=== PATIENT | male | born 1970 | race Caucasian/White ===

== ENCOUNTER 2022-03-18 17:50 | Emergency (ER) | payer OTHER, SELFPAY ==
--- NOTE | ~2022-03-18 | CT_ITS ---
EXAMINATION: CT abdomen pelvis wo con DATE: 03/18/2022 20:15 INDICATION: left lower abdominal pain TECHNIQUE: Computed tomography (CT) of the abdomen and pelvis was performed without intravenous contr ast. Automated exposure control and iterative reconstruction technique were employed. The dose-length product was 296.73 mGy-cm. COMPARISON: None. FINDINGS: Lower thorax: Calcified right hilar node. Right lower lobe granuloma. Liver: Normal. Biliary/Gallbladder: Gallbladder is normal. No bile duct dilation. Pancreas: No mass or duct dilation. Spleen: Normal. Adrenals:No mass. Kidneys: Moderate right perinephric stranding and hydronephrosis. GI tract: No small or large bowel dilation. Normal appendix. Mesentery/Peritoneum: No ascites, mass, or free air. Retroperitoneum: No mass. Atherosclerotic abdominal aortic and/or arterial calcifications. Pelvis: Pelvic organs are within normal limits. 3 x 5 mm distal left ureteral stone Soft Tissues: Uncomplicated fat-containing umbilical and left inguinal hernias Bones: No acute osseous finding. IMPRESSION: 3 x 5 mm distal left ureteral stone causing moderate obstructive uropathy Reviewed, dictated and finalized at location K.
--- NOTE | ~2022-03-18 | XR_ITS ---
EXAM: XR abdomen/kub 1V DATE: 03/18/2022 20:15 HISTORY: left lower abdominal pain x 1 day . COMPARISON: CT abdomen and pelvis, same date. FINDINGS: Clear lung bases. Normal bowel gas pattern. No organomegaly. No abnormal abdominal calcifi cation. Regional bones and soft tissues normal for age. IMPRESSION: Normal abdomen radiograph findings. Known distal left ureteral stone is not radiographica lly visualized. Reviewed, dictated and finalized at location K. IMPRESSION: Normal abdomen radiograph findings. Known distal left ureteral ston e is not radiographically visualized.
[2022-03-18 17:55] VITALS: BP 138/82; PULSE 69; RESP 16; TEMP 36.8; O2SAT 100
[2022-03-18 19:37] LABS: Basophils Absolute Auto 0.1 K/mm3 (0.0-0.1); Basophils Percent Auto 0.5 % (0.2-1.2); Eosinophils Absolute Auto 0.2 K/mm3 (0-0.3); Eosinophils Percent Auto 1.3 % (0-4.4); Hematocrit 44.2 % (42.0-52.0); Immature Granulocyte Absolute 0.04 K/mm3 (0.00-0.031); Immature Granulocyte Percent A 0.3 % (0-0.5); Lymphocytes Percent Auto 14.7 % (18.3-44.2); Mean Corpuscular HGB Conc 33.9 g/dl (32-36); Mean Corpuscular Hemoglobin 31.6 pg (26-34); Mean Corpuscular Volume 93.2 fl (80-100); Mean Platelet Volume 9.7 fl (7.4-10.4); Monocytes Absolute Auto 0.7 K/mm3 (0.1-0.6); Monocytes Percent Auto 6.1 % (2.6-8.5); Neutrophils Absolute Auto 8.9 K/mm3 (1.3-6.7); Neutrophils Percent Auto 77.1 % (45.5-73.1); Platelet Count Result 181 k/mm3 (150-375); Red Blood Count 4.74 M/mm3 (4.6-6.20); Red Cell Distribution Width 13.2 % (11.5-14.5); White Blood Count 11.5 K/mm3 (4.5-10.0)
[2022-03-18 19:47] LABS: Alanine Aminotransferase 17 U/L (6-50); Albumin Level 4.5 g/dL (3.5-5.1); Alkaline Phosphatase 104 U/L (38-126); Anion Gap 8 mmol/L (8-16); Aspartate Amino Transferase 26 U/L (17-59); Bilirubin,Total 0.3 mg/dL (0.2-1.3); Blood Urea Nitrogen 16 mg/dL (9-20); Calcium 8.7 mg/dL (8.4-10.2); Carbon Dioxide 26 mmol/L (22-30); Chloride 105 mmol/L (98-107); Estimated CRCL calculation 57 ml/min; Estimated Glomerular Filt Rate > 60; Glucose 102 mg/dL (65-110); Lipase 57 U/L (23-300); Potassium 4.2 mmol/L (3.4-5.0); Sodium 139 mmol/L (137-145)
[2022-03-18] MEDS: SODIUM CHLORIDE 0.9% IV 1,000 ML 999 ML IV CONT (20:18)
[2022-03-18] MEDS: KETOROLAC 30 MG/ML VIAL (*BKC) IV PUSH (21:07)
--- NOTE | 2022-03-19 01:35 | ED.ABDPAIN ---
HPI - Abdominal Pain General Chief Complaint: Abdominal Pain Stated Complaint: abd pain Time Seen by Provider: 03/18/22 19:05 History of Present Illness HPI narrative: 51-year-old male presents today with complaints of left lower abdominal pain that started about 24 hours ago. Patient states the pain started in his left flank and has now traveled to his left lower abdominal arm. Patient states he does have a history of kidney stones. Patient states last kidney stone was years ago. Patient states he was able to pass it on his own. Patient denies any urinary frequency, dysuria, or hematuria. Related Data Allergies Allergy/AdvReac Type Severity Reaction Status Date / Time No Known Allergies Allergy Verified 03/18/22 19:36 Review of Systems Review of Systems: CONSTITUTIONAL: Denies fever, chills, or sweats. EYES: Denies visual changes, redness, or discharge. ENT: Denies rhinorrhea, congestion, sore throat, or otalgia. CARDIOVASCULAR: Denies chest pain, palpitations, or edema. RESPIRATORY: Denies cough or dyspnea. GASTROINTESTINAL: Left lower abdominal pain. Denies nausea, vomiting, or diarrhea. GENITOURINARY: Denies dysuria or hematuria. SKIN: Denies rash or itching. MUSCULOSKELETAL: Denies back pain, joint pain, or myalgia. NEUROLOGIC: Denies headache, numbness, dizziness, or weakness. PSYCHIATRIC: Denies anxiety or depression. [facility] Social History Social History Smoking status: Current every day smoker Alcohol intake: never Course Course Emergency Course: Patient refused fentanyl and Zofran. IV fluids were given. CT showed 3 x 5 mm stone distal causing moderate distal uropathy. Discussed findings with patient. Agreed to Toradol. And reevaluation. Patient left prior to reevaluation. Vital Signs Vital signs: Vital Signs Temperature 36.8 C 03/18/22 17:55 Pulse Rate 69 03/18/22 17:55 Respiratory Rate 16 03/18/22 17:55 Blood Pressure 138/82 03/18/22 17:55 Pulse Oximetry 100 03/18/22 17:55 Temperature 36.8 C 03/18/22 17:55 Pulse Rate 69 03/18/22 17:55 Respiratory Rate 16 03/18/22 17:55 Blood Pressure 138/82 03/18/22 17:55 Pulse Oximetry 100 03/18/22 17:55 MDM - Abdominal Pain MDM Narrative Medical decision making narrative: 51-year-old male HPI as noted. Differentials as noted. Low suspicion for diverticulitis. High suspicion for calculus of the kidney due to patient's history and pain starting in the left flank than migrating to left lower abdomen. Patient unable to give urine sample. CT showed 5 x 3 mm stone. Toradol given. Patient left emergency room prior to any further recommendations or discharge instructions. Differential Diagnosis Differential diagnosis: Likely abdominal pain, calculus of kidney, constipation and diverticulitis Lab Data Attestation: I reviewed the patient's lab results. Result diagrams: 03/18/22 19:30 03/18/22 19:30 Labs: Lab Results 03/18/22 03/18/22 Range/Units 19:30 19:30 WBC 11.5 H (4.5-10.0) K/mm3 RBC 4.74 (4.6-6.20) M/mm3 Hgb 15.0 (14.0-18.0) g/dL Hct 44.2 (42.0-52.0) % MCV 93.2 (80-100) fl MCH 31.6 (26-34) pg MCHC 33.9 (32-36) g/dl RDW 13.2 (11.5-14.5) % Plt Count 181 (150-375) k/mm3 MPV 9.7 (7.4-10.4) fl Immature Gran % (Auto) 0.3 (0-0.5) % Neut % (Auto) 77.1 H (45.5-73.1) % Lymph % (Auto) 14.7 L (18.3-44.2) % [place] % (Auto) 6.1 (2.6-8.5) % Eos % (Auto) 1.3 (0-4.4) % Baso % (Auto) 0.5 (0.2-1.2) % Lymph # (Auto) 1.70 (0.9-3.2) K/mm3 [place] # (Auto) 0.7 H (0.1-0.6) K/mm3 Eos # (Auto) 0.2 (0-0.3) K/mm3 Baso # (Auto) 0.1 (0.0-0.1) K/mm3 Abs Immat Gran (auto) 0.04 H (0.00-0.031) K/mm3 Absolute Neuts (auto) 8.9 H (1.3-6.7) K/mm3 Absolute Nucleated RBC 0.0 (0.0-0.012) K/mm3 Nucleated RBC % 0.0 (0.0-0.2) % Sodium 139 (137-145) mmol/L Potassium 4.2 (3.4-5.0) mmol/L Chloride 105 (98-107) mmol/
== END 2022-03-18 21:55 | disposition left against medical advice (07) ==
PROVIDERS: Emergency Medicine; Emergency Provider Nurse Practitioner Family; PCP Internal Medicine
DX: N13.9 Obstructive and reflux uropathy, unspecified (principal); N20.1 Calculus of ureter; F17.200 Nicotine dependence, unspecified, uncomplicated
CPT/HCPCS: 36415; 74018; 74176; 80053; 83690; 85025; 96361; 96374; 99284; J1885; J7030

== ENCOUNTER 2025-06-20 13:37 | Outpatient (CLI) | payer OTHER, SELFPAY ==
--- NOTE | ~2025-06-20 | MR_ITS ---
EXAMINATION: MR lumbar spine wo favian, 06/20/2025 13:49 COPYIST HISTORY: radiculopathy COMPARISON: None TECHNIQUE: Multi-planar multi-sequence images were obtained of the lumbar spine without contrast per protocol. FINDINGS: Moderate loss of vertebral height throughout with grade 1 almost grade 2 anterolisthesis of L5 on S1 with bilateral spondylolytic the apex. Marrow signal is appropriate. Posterior alignment is otherwise intact. There is otherwise no abnormal signal within the posterior elements Conus terminates at T12-L1 with no abnormal signal within the cord Moderate loss of disc height throughout with severe loss of disc height at L5-S1 with disc desiccation and endplate degenerative changes L5-S1: Circumferential bulging of the disc with ligamentum flavum and facet hypertrophy with moderate to severe bilateral foramina and lateral recess stenosis with mild canal stenosis. L4-5: Circumferential bulging of the disc with mild bilateral foraminal stenosis. No lateral recess or canal stenosis. L3-4: No canal or foraminal stenosis L2-L3: No canal or foraminal stenosis L1-L2: No canal or foraminal stenosis IMPRESSION: Degenerative changes of L5-S1 detailed above Reviewed, dictated and finalized at location P. IST
== END 2025-06-20 13:38 | disposition home or self-care (01) ==
PROVIDERS: PCP Internal Medicine; Visit Provider Internal Medicine
DX: M54.16 Radiculopathy, lumbar region (principal); M51.379 Other intervertebral disc degeneration, lumbosacral region without mention of lumbar back pain or lower extremity pain
CPT/HCPCS: 72148